=== PATIENT | female | born 1970 | race Caucasian/White ===

== ENCOUNTER 2021-01-16 02:57 | Emergency (ER) | payer OTHER ==
[~2021-01-16] VITALS: Ht 172.7 cm; Wt 69.4 kg
--- NOTE | ~2021-01-16 | EMS ---
[address] [address] EMS Patient Care Report Name: TONIO NUNEZ Room #: DEP REEMA Abebe#: [id number] Admission: 01/16/21 Attend Phys: Discharge: 01/16/21 Date of : 74 Report #: [id number] THIS REPORT FOR: //name// Report Transmitted: 01/18/2021 11:42 EMS Care Summary [place], [place]/[facility] Incident [id number] @ 01/16/2021 02:27 Incident Location [address] [place] [address] Patient TONIO NUNEZ Female, 50 Years 1970 Patient Address [address] [place] [address] Patient History Urinary Tract Infection (UTI), Patient Allergies No known allergies, Patient Medications None Reported, Chief Complaint UTI Disposition Transported No Lights/Heath Dispatch Reason Sick Person Transported To [facility] Narrative M42 arrived on scene to find the patient walking towards the ambulance. Patient said she had been having tremors, weakness, and some back pain for several days. Patient said she had gone to the urgent care on and they prescribed her medication for a UTI. Patient said she had taken one round of [facility] [address] [place] [address] EMS Patient Care Report Name: TONIO NUNEZ Room #: DEP ER Andrae#: [id number] Admission: 01/16/21 Attend Phys: Discharge: 01/16/21 Date of : 74 Report #: [id number] her two week medication and was not feeling better. Patient denied chest pain, shortness of breath, fever, or cough. Patient was secured with seat belts. En route to the hospital no changes in the patient condition occurred. [facility]42 arrived on scene of the hospital and patient care was transferred to the RN. Initial Vitals @02:40P: 76,R: 16,BP: 148/85,Pain: 0/10,GCS: 15,SpO2: 98,Revised Trauma: 12, @02:38P: 81,R: 16,BP: 168/83,Pain: 0/10,GCS: 15,Glucose: 106,CO: 1,SpO2: 96,Revised Trauma: 12, Assessments @02:35MENTAL:No Abnormalities,SKIN:No Abnormalities,HEENT:Head/Face: No Abnormalities,Eyes: No Abnormalities,Neck/Airway: No Abnormalities,LUNG SOUNDS:General: No Abnormalities,Left Upper: No Abnormalities,Right Upper: No Abnormalities,Left Lower: No Abnormalities,Right Lower: No Abnormalities,ABDOMEN:General: No Abnormalities,Left Upper: No Abnormalities,Right Upper: No Abnormalities,Left Lower: No Abnormalities,Right Lower: No Abnormalities,PELVIS//GI:No Abnormalities,EXTREMITIES:Left Arm: No Abnormalities,Right Arm: No Abnormalities,Left Leg: No Abnormalities,Right Leg: No Abnormalities,PULSE:NEURO:No Abnormalities,@02:45MENTAL:No Abnormalities,SKIN:No Abnormalities,HEENT:Head/Face: No Abnormalities,Eyes: No Abnormalities,Neck/Airway: No Abnormalities,LUNG SOUNDS:General: No Abnormalities,Left Upper: No Abnormalities,Right Upper: No Abnormalities,Left Lower: No Abnormalities,Right Lower: No Abnormalities,ABDOMEN:General: No Abnormalities,Left Upper: No Abnormalities,Right Upper: No Abnormalities,Left Lower: No Abnormalities,Right Lower: No Abnormalities,PELVIS//GI:No Abnormalities,EXTREMITIES:Left Arm: No Abnormalities,Right Arm: No Abnormalities,Left Leg: No Abnormalities,Right Leg: No Abnormalities,PULSE:NEURO:No Abnormalities, Impression Urinary Tract Infection (UTI) Procedures @02:35ALS AssessmentResponse: UnchangedSucceeded Timeline 02:26,Call Received 02:26,Dispatch Notified 02:27,Dispatched 02:28,En Route 02:34,On Scene 02:35,At Patient 02:35,ALS Assessment,Response: UnchangedSucceeded, 02:37,Depart Scene 02:38,BP: 168/83 M,PULSE: 81,RR: 16 R,SPO2: 96 Ox,ETCO2: ,B,PAIN: 0,GCS: [address] [address] EMS Patient Care Report Name: TONIO NUNEZ Room #: DEP REEMA Abebe#: [id number] Admission: 01/16/21 Attend Phys: Discharge: 01/16/21 Date of : 74 Report #: [id number] 15, 02:40,BP: 148/85 M,PULSE: 76,RR: 16 R,SPO2: 98 Ox,ETCO2: ,BG: ,PAIN: 0,GCS: 15, 02:55,At Destination 03:09,Call Closed Disclaimer v1.1 Copyright 2020 [employer] This EMS Care Summary contains data elements from the applicable legal record (which may be displayed differently). It is designed to provide pertinent information for the following purposes: continuity of care, clinical quality, and state data reporting. The complete legal record is available to ED staff and administrators of the receiving hospital in [employer] Patient Tracker. All data is provided "as is."
[2021-01-16 02:58] VITALS: BP 132/76
[2021-01-16] MEDS ORDERED: MACROBID 100 M100 MG PO (03:03)
[2021-01-16 03:47] LABS: URINE BILIRUBIN NEGATIVE (Negative); URINE BLOOD 1+ (Negative); URINE CLARITY CLEAR; URINE COLOR YELLOW; URINE GLUCOSE-RANDOM* NEGATIVE (Negative); URINE KETONES NEGATIVE (Negative); URINE NITRITE-REFLEX NEGATIVE (Negative); URINE PROTEIN (DIPSTICK) NEGATIVE (Negative); URINE SPECIFIC GRAVITY 1.015 (1.005-1.035); URINE UROBILINOGEN 0.2 E.U./dl (0.2-1.0)
[2021-01-16 04:11] LABS: URINE LEUKOCYTES-REFLEX 1+ (Negative)
[2021-01-16 04:22] LABS: CALCIUM 8.6 mg/dL (8.5-10.1); CREATININE 0.9 mg/dL (0.6-1.0); POTASSIUM 3.6 mmol/L (3.5-5.1)
[2021-01-16 04:26] LABS: HEMATOCRIT 33.2 % (37.0-47.0); HEMOGLOBIN 10.8 gm/dL (12.0-15.0); MCH 27.2 pg (26.0-34.0); MCHC 32.5 g/dL (28.0-37.0); MCV 83.5 fL (80.0-100.0); RBC 3.98 mil/uL (4.20-5.00); WBC 7.4 thou/uL (4.0-11.0)
[2021-01-16 04:28] LABS: ALBUMIN 3.6 g/dL (3.4-5.0); TOTAL BILIRUBIN 0.2 mg/dL (0.2-1.0); TOTAL PROTEIN 8.4 g/dL (6.4-8.2)
[2021-01-16 04:30] LABS: BACTERIA-REFLEX None Seen /HPF (None Seen); CASTS None Seen /LPF (None Seen); CRYSTALS None Seen /LPF (None Seen); MUCUS 0-3 Light strn/LPF (None Seen); SQUAMOUS 0-3 Few /LPF (0-3); URINE RBC 1-2 Rare /HPF (NONE SEEN); URINE WBC-REFLEX 0-5 Rare /HPF (0-5)
[2021-01-16] MEDS ORDERED: VALIUM2 MG PO (04:54)
== END 2021-01-16 05:00 | disposition home or self-care (01) ==
LOC: ER 02:57
PROVIDERS: Emergency Medicine
DX: R09.81 Nasal congestion (principal); M54.5 Low back pain; J30.2 Other seasonal allergic rhinitis; N39.0 Urinary tract infection, site not specified; Z86.16 Personal history of COVID-19; Z79.899 Other long term (current) drug therapy